=== PATIENT | female | born 1990 | race Caucasian/White ===

== ENCOUNTER 2017-02-27 11:28 | Emergency (ER) | payer OTHER ==
[2017-02-27 11:32] VITALS: BP 143/71; PULSE 64; TEMP 98; BMI 30.7
--- NOTE | 2017-02-27 11:45 | PDOC ---
History of Present Illness - General Chief Complaint: Pain, Acute Stated Complaint: RIGHT KNEE PAIN Time Seen by Provider: 02/27/17 11:34 - History of Present Illness Initial Comments: 02/27/17 11:40 Patient is a 26 year old female who presents with right knee pain. The patient reports having a mechanical fall while at work 2 days ago and sustained an abrasion just below her right knee. She has been using peroxide to clean the wound and has been keeping it covered with a bandaid. She was concerned that the wound was infected due to some redness around the wound. She denies any fevers, chills, or difficultly ranging the joint or walking. She has no other complaints. Past History - Past Medical History Allergies/Adverse Reactions: Allergies Allergy/AdvReac Type Severity Reaction Status Date / Time doxycycline Allergy Verified 02/27/17 11:29 levofloxacin [From Levaquin] Allergy Rash Verified 02/27/17 11:29 Penicillins Allergy Verified 02/27/17 11:29 Home Medications: Ambulatory Orders NK [No Known Home Medication] 02/27/17 Anemia: No Asthma: No Diabetes: No HTN: No - Surgical History Abdominal Surgery: No - Reproductive History Therapeutic (s) & number: No - Psycho/Social/Smoking Cessation Hx Anxiety: No Suicidal Ideation: No Smoking Status: No Smoking History: Never smoked Number of Cigarettes Smoked Daily: 0 Hx Alcohol Use: No Drug/Substance Use Hx: No Substance Use Type: None Review of Systems - Review of Systems Constitutional: No: Chills, Fever Respiratory: No: Cough, Shortness of Breath Cardiac (ROS): No: Chest Pain, Palpitations, Chest Tightness ABD/GI: No: Constipated, Diarrhea, Nausea, Vomiting : No: Burning, Dysuria Integumentary: No: Rash Neurological: No: Headache, Numbness, Tingling, Weakness *Physical Exam - Vital Signs Last Vital Signs Temp Pulse Resp BP Pulse Ox 98 F 64 16 143/71 100 02/27/17 11:28 02/27/17 11:28 02/27/17 11:28 02/27/17 11:28 02/27/17 11:28 - Physical Exam Comments: 02/27/17 11:54 General Appearance: Nourished. No Apparent Distress HEENT: No Pharyngeal Erythema, Tonsillar Exudate, Tonsillar Erythema Respiratory/Chest: Lungs Clear, Normal Breath Sounds. No Crackles, Rales, Rhonchi, Wheezing Cardiovascular: Regular Rhythm, Regular Rate. No Murmur, Gallop/S3, Gallop/S4 Gastrointestinal/Abdominal: Normal Bowel Sounds, Soft. No Guarding, Rebound, Tenderness Extremity: Normal Capillary Refill, 1-2 cm abrasion noted over the right tibia just below the right knee with good granulation tissue and surrounding bruising. Normal range of motion the right knee. Integumentary: Normal Color, Dry, Warm Neurologic: Fully Oriented, Alert, Normal Mood/Affect, Normal Response Medical Decision Making - Medical Decision Making 02/27/17 11:45 Patient is a 26 year old female who presents with concerns for infection of a right knee abrasion. Given the physical examination consisting of a lack of warmth, erythema of the abrasion with good granulation tissue and no pus drainage, the patient's abrasion does not appear infected. The patient is currently caring for the wound appropriately with cleaning of the wound with peroxide and covered with bandages. Given her exam, we are not concerned for fracture currently. The patient does not know when her last tetanus shot was so we will update here in the ED. We discussed the plan with the patient and feel comfortable discharging home. The patient is agreeable to the plan. *DC/Admit/Observation/Transfer Diagnosis at time of Disposition: Abrasion - Discharge Dispostion Disposition: HOME Condition at time of disposition: Good Admit: No - Patient Instructions Printed Discharge Instructions: DI for Abrasion Additional Instructions: Please return to the ER if you experience concerning or worsening symptoms including fevers or chills. Please follow up with your primary care provider to discuss your ER visit. - Attestations Physician Attestion: 02/27/17 11:53 I, Dr. Severino Monzon, attest that this document has been prepared under my direction and personally reviewed by me in its entirety. I further attest, that it accurately reflects all work, treatment, procedures and medical decision -making performed by me.
[2017-02-27] MEDS ORDERED: DIPHTH,PERTUSS(ACELL),TET 0.5 ML DISP.SYRIN IM ONE (11:49)
--- NOTE | 2017-02-27 12:03 | PDOC ---
Attending Attestation - Resident Resident Name: NaSeverino - ED Attending Attestation I have performed the following: I have examined & evaluated the patient, The case was reviewed & discussed with the resident, I agree w/resident's findings & plan, Exceptions are as noted - HPI HPI: 02/27/17 11:54 26 yo F with no pmhx here s/p trip and fall on right knee yestserday. c/o abrasion to right knee and mild right knee pain. no pain with range of motion, no leg swelling. no redness. no f/c was concerned abrasion was getting infected. has been applying bacitracin/ neosporin and hydrogen peroxide since fall. did not take anything for pain prior to arrival. last tetanus unknown. - Physicial Exam PE: 02/27/17 11:57 awake alert lung clear bilaterally. heart RRR no mrg. right leg with superficial abrasion to knee 2x 2.5 cm . knee FROM. no laxity. ankle and hip NT FROM. no surrounding erythema. no exudate. - Medical Decision Making 02/27/17 12:03 26 yo F s/p fall with superficial abrasion contusion. fROM. xray not necessary. plan tetanus. continued superifical wound care. pt declined pain medication. dc.
== END 2017-02-27 12:05 | disposition home or self-care (01) ==
LOC: FER 11:28
PROC: 3E0234Z Introduction of Serum, Toxoid and Vaccine into Muscle, Percutaneous Approach (ICD-10-PCS; principal; 2017-02-27)
DX: S80.211A Abrasion, right knee, initial encounter (principal); W18.39XA Other fall on same level, initial encounter; Y93.9 Activity, unspecified; Y92.9 Unspecified place or not applicable
CPT/HCPCS: 90715; 99281-25

== ENCOUNTER 2018-12-27 11:19 | Emergency (ER) | payer OTHER ==
--- NOTE | 2018-12-27 11:22 | PDOC ---
History of Present Illness - General Chief Complaint: Vomiting/Diarrhea Stated Complaint: ABD CRAMPING, DIARRHEA, VOMITING Time Seen by Provider: 12/27/18 11:21 - History of Present Illness Initial Comments: 28 year old female with PMH of acne (recently on doxycyline) and obesity ( taking semeglutide and phenteramine) presenting with nausea, vomiting, abdominal cramping, and diarrhea for the past 2.5 days. 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 Denies any unusual food ingestion or any poorly cooked food ingestion. States that these symptoms started on 12/25 afternoon with some mild abdominal cramping followed by nausea. On 12/26 the diarrhea worsened and she began to experience morning vomiting multiple times which would resolve in the afternoon. She was able to ingest pasta and water yesterday evenign after work but had diarrhea soon after the pasta ingestion. this morning she had some more episodes of vomiting but her diarrhea has improved. She is currently hungry but slightly afraid to eat as she fears she may vomit. Denies fevers, chills, nausea, vomiting, or other symptoms. 12/27/18 11:48 Past History - Past Medical History Allergies/Adverse Reactions: Allergies Allergy/AdvReac Type Severity Reaction Status Date / Time levofloxacin [From Levaquin] Allergy Rash Verified 12/27/18 11:21 Home Medications: Ambulatory Orders Phentermine HCl 5 mg PO DAILY 12/27/18 Semaglutide [Ozempic] 0.25 mg SQ WEEKLY 12/27/18 Anemia: No Asthma: No Diabetes: No HTN: No - Surgical History Abdominal Surgery: No - Reproductive History Therapeutic (s) & number: No - Suicide/Smoking/Psychosocial Hx Smoking Status: No Smoking History: Never smoked Number of Cigarettes Smoked Daily: 0 Hx Alcohol Use: No Drug/Substance Use Hx: No Substance Use Type: None Review of Systems - Review of Systems Constitutional: No: Chills, Diaphoresis, Fever HEENTM: No: Blurred Vision, Tearing Respiratory: No: Cough, Orthopnea, Shortness of Breath Cardiac (ROS): No: Chest Pain, Edema, Irregular Heart Rate ABD/GI: Yes: Diarrhea, Nausea, Poor Appetite, Poor Fluid Intake, Vomiting : No: Burning, Dysuria, Discharge Musculoskeletal: No: Back Pain, Joint Pain Integumentary: No: Bruising, Erythema, Flushing Neurological: No: Headache, Numbness, Paresthesia Psychiatric: No: Anxiety, Depression *Physical Exam - Physical Exam General Appearance: Yes: Nourished, Appropriately Dressed. No: Apparent Distress HEENT: positive: EOMI, YAMILE, Normal ENT Inspection, Normal Voice Neck: positive: Trachea midline, Normal Thyroid, Supple. negative: Tender, Rigid Respiratory/Chest: positive: Lungs Clear, Normal Breath Sounds. negative: Chest Tender, Respiratory Distress, Accessory Muscle Use Cardiovascular: positive: Regular Rhythm, Regular Rate Gastrointestinal/Abdominal: positive: Normal Bowel Sounds, Flat, Soft. negative : Tender Lymphatic: negative: Adenopathy, Tenderness Musculoskeletal: positive: Normal Inspection. negative: Decreased Range of Motion Extremity: positive: Normal Capillary Refill, Normal Inspection, Normal Range of Motion. negative: Tender Integumentary: positive: Normal Color, Dry, Warm Neurologic: positive: Fully Oriented, Alert, Normal Mood/Affect, Normal Response , Motor Strength 5/5 Medical Decision Making - Medical Decision Making 28 year old previously healthy female presenting with nausea, vomiting, diarrhea , and abdominal cramping. Given her sick contacts with identical symptoms and apparent symptom improvement prior to presentation this seems consistent with an infectious gastroenteritis. Her symptoms here drastically improved after 1 L NS and toleration of PO fluids and crackers. HCG and UA were negative. This is unlikely to be a concerning/ emergent intra-abdominal pathology given that she is non-tender on PE and remained so throughout her stay. Furthermore, she had no VS abnormalities. Patient agreed to strong return precautions and follow up with her PCP. 12/27/18 11:54 *DC/Admit/Observation/Transfer Diagnosis at time of Disposition: Nausea vomiting and diarrhea Abdominal pain Qualifiers: Abdominal location: generalized Qualified Code(s): R10.84 - Generalized abdominal pain - Discharge Dispostion Disposition: HOME Condition at time of disposition: Improved Decision to Admit order: No - Referrals Referrals: Danilo Chang MD [Primary Care Provider] - - Patient Instructions Printed Discharge Instructions: Nausea and Vomiting-Adult Additional Instructions: Please continue to eat soft room temperature foods and avoid spicy/ heavy foods for the next day. Please avoid alcohol, high sugar drinks, or other irritating foods. Continue to drink slightly cool or room temperature water as well. Your symptoms should improve in one day or so. If you do not improve in two days, get worse, have worsening, abdominal pain, worsening nausea, worsening vomiting , or other concerning symptoms. Follow up with your PCP within one week if you have any further questions or non-urgent concerns. - Post Discharge Activity
[2018-12-27 11:36] VITALS: BP 129/85; PULSE 86; TEMP 97.5; BMI 31.4
[2018-12-27 11:40] LABS: HCG,QUALITATIVE URINE Negative
[2018-12-27] MEDS ORDERED: SODIUM CHLORIDE 0.9% 500 ML INFUS.BAG IV ONE (11:47)
[2018-12-27 11:57] LABS: EPI CELLS 1+ /HPF; URINE BACTERIA 1+ /hpf (NEGATIVE); URINE RBC 0-3 /hpf (0-4); URINE WBC 0-3 (NEGATIVE)
[2018-12-27 11:59] LABS: PH,URINE 5.5 (4.5-8); URINE APPEARANCE CLEAR; URINE BILIRUBIN NEGATIVE (NEGATIVE); URINE COLOR YELLOW; URINE GLUCOSE (UA) NEGATIVE (NEGATIVE); URINE KETONE NEGATIVE (NEGATIVE); URINE PROTEIN TRACE (NEGATIVE); URINE UROBILINOGEN 0.2 (0.2-1.0)
[2018-12-27 12:00] LABS: URINE LEUK ESTERASE TRACE (NEGATIVE); URINE NITRITE NEGATIVE (NEGATIVE)
[2018-12-27 12:01] LABS: EPITHELIAL CELLS 1+ /hpf
--- NOTE | 2018-12-27 12:40 | PDOC ---
Attending Attestation - Resident Resident Name: Micheal Mitchell - ED Attending Attestation I have performed the following: I have examined & evaluated the patient, The case was reviewed & discussed with the resident, I agree w/resident's findings & plan, Exceptions are as noted - HPI HPI: 12/27/18 12:38 28 F with N+V+D. Pt states that her symptoms began 2 days ago with vomiting and diarrhea. Today, she states the vomiting has subsided but she still has some diarrhea. Endorses cramping abdominal pain associated with diarrhea. Denies F/ C. Denies bloody or dark stools or blood in her vomit. Endorses sick contacts at work with similar symptoms. Denies flank pain or dysuria. Denies vaginal bleeding/discharge. - Physicial Exam PE: 12/27/18 12:39 "GENERAL: Awake, alert, and fully oriented, in no acute distress. HEAD: No signs of trauma EYES: PERRLA, EOMI, sclera anicteric, conjunctiva clear ENT: Auricles normal inspection, hearing grossly normal, nares patent, oropharynx clear without exudates. Moist mucosa NECK: Nontender, no stepoffs, Normal ROM, supple, no lymphadenopathy, JVD, or masses LUNGS: Breath sounds equal, clear to auscultation bilaterally. No wheezes, and no crackles HEART: Regular rate and rhythm, normal S1 and S2, no murmurs, rubs or gallops ABDOMEN: Soft, nontender, normoactive bowel sounds. No guarding, no rebound. No masses EXTREMITIES: Normal range of motion, no edema. No clubbing or cyanosis. No cords, erythema, or tenderness NEUROLOGICAL: Cranial nerves II through XII intact. 5/5 strength and sensation in all extremities, Normal speech, normal gait, normal cerebellar function SKIN: Warm, Dry, normal turgor, no rashes or lesions noted. - Medical Decision Making 12/27/18 12:40 28 F with N+V+D x 2 days. Completely benign abdominal exam in ED. Suspect viral gastroenteritis. - IVF - PO challenge 12/27/18 13:41 pt tolerating PO Pt is well appearing, with normal vitals. Clinically stable for DC at this time. I discussed the physical exam findings, ancillary test results and final diagnoses with the patient. I answered all of the patient's questions. The patient was satisfied with the care received and felt comfortable with the discharge plan and treatment plan. The patient agrees to follow up with the primary care physician within 24-72 hours.
== END 2018-12-27 13:40 | disposition home or self-care (01) ==
LOC: FER 11:19
PROC: 3E0337Z Introduction of Electrolytic and Water Balance Substance into Peripheral Vein, Percutaneous Approach (ICD-10-PCS; principal; 2018-12-27)
DX: R11.2 Nausea with vomiting, unspecified (principal); R10.84 Generalized abdominal pain; E66.9 Obesity, unspecified; Z68.31 Body mass index [BMI] 31.0-31.9, adult
CPT/HCPCS: 81003; 81015; 84703; 99283-25

== ENCOUNTER 2019-07-18 21:01 | Emergency (ER) | payer OTHER ==
[2019-07-18] MEDS ORDERED: NAPROXEN 500 MG TABLET (FP) PO ONE (21:18)
[2019-07-18] MEDS ORDERED: AMOX TR/POT CLAV 875MG/125MG TABLETS (FP) PO ONE (21:18)
[2019-07-18] MEDS ORDERED: AMOX TR/POT CLAV 875MG/125MG TABLETS (FP) ONE (21:22)
[2019-07-18] MEDS ORDERED: NAPROXEN 500 MG TABLET (FP) ONE (21:22)
--- NOTE | 2019-07-18 21:25 | PDOC ---
Documentation entered by Pepe Mcpherson SCRIBE, acting as scribe for Bhanu Mclaughlin MD. Bhanu Mclaughlin MD: This documentation has been prepared by the [employer] Aiswarya, SCRIBE, under my direction and personally reviewed by me in its entirety. I confirm that the documentation accurately reflects all work, treatment, procedures, and medical decision making performed by me. History of Present Illness - General Chief Complaint: Ear Problem Stated Complaint: EAR PAIN Time Seen by Provider: 07/18/19 21:13 History Source: Patient Exam Limitations: No Limitations - History of Present Illness Initial Comments: 07/18/19 21:24 Assessment plan: This is a 28-year-old female who has history of ear infections in the past. Patient went swimming on Sunday and developed a right otitis externa. Patient went to an urgent care center and was started on some eardrops which up appear to be helping however patient now has increased pain so came in for evaluation. Patient has a otitis media in addition to a improving otitis externa. Patient started on Augmentin first dose given in ED and patient discharged home. 07/18/19 21:32 The patient is a 28 year old female with no significant past medical history, who presents to the emergency room with 5 days of ear pain extends to the jaw. The patient states the throbbing and sharp pain is located to the right external ear with a 10/10 severity. The patient states she is currently on neomycin and feels like it worsened the pain. She also mentions she went swimming on 07/14/2019. PAST MEDICAL HISTORY: no significant history PAST SURGICAL HISTORY: no significant history FAMILY HISTORY: no pertinent history SOCIAL HISTORY: Pt lives with family and is employed. MEDICATIONS: reviewed ALLERGIES: As per nursing notes Adult ROS General: No fevers or chills, no weakness, no weight loss HEENT:+ear pain No change in vision. No sore throat. CardioVascular: No chest pain or shortness of breath Neurologic: No headache, vertigo, dizziness or loss of consciousness Psychiatric: nor depression Skin:+external ear redness. Endocrine: no increased thirst or abnormal weight change Allergic: no skin or latex allergy All other systems reviewed and normal Basic PE GENERAL: The patient is awake, alert, and fully oriented, in no acute distress. HEAD: Normal with no signs of trauma. EYES: Pupils equal, round and reactive to light, extraocular movements intact, sclera anicteric, conjunctiva clear. EAR: +Pain on manipulation of the right ear lobe and external canal edema with mild erythema. No discharge. Tympanic membrane moderately red. EXTREMITIES: Normal range of motion, no edema. NEUROLOGICAL: Normal speech, normal gait. PSYCH: Normal mood, normal affect. SKIN: Warm, Dry, normal turgor, no rashes or lesions noted. Past History - Past Medical History Allergies/Adverse Reactions: Allergies Allergy/AdvReac Type Severity Reaction Status Date / Time levofloxacin [From Levaquin] Allergy Rash Verified 07/18/19 21:10 Home Medications: Ambulatory Orders Amoxicillin/Potassium Clav [Augmentin 875-125 Tablet] 1 each PO BID #20 tablet 07/18/19 Cholecalciferol (Vitamin D3) [Optimal D3] 50,000 unit PO WEEKLY 07/18/19 Neomycin/Polymyxn/Hc [Cortisporin Otic Suspenstion -] 1 drop AD QID 07/18/19 Anemia: No Asthma: No COPD: No Diabetes: No HTN: No - Surgical History Abdominal Surgery: No - Reproductive History Therapeutic (s) & number: No - Psycho Social/Smoking Cessation Hx Smoking Status: No Smoking History: Never smoked Have you smoked in the past 12 months: No Number of Cigarettes Smoked Daily: 0 Hx Alcohol Use: Yes (SOCIAL) Drug/Substance Use Hx: No Substance Use Type: None *Physical Exam - Vital Signs Last Vital Signs Temp Pulse Resp BP Pulse Ox 98.3 F 80 16 150/90 95 07/18/19 21:08 07/18/19 21:08 07/18/19 21:08 07/18/19 21:08 07/18/19 21:08 Discharge - Discharge Information Problems reviewed: Yes Clinical Impression/Diagnosis: Right otitis media Right otitis externa Qualifiers: Otitis externa type: swimmer's ear Chronicity: acute Qualified Code(s): H60.331 - Swimmer's ear, right ear Condition: Good Disposition: HOME - Admission No - Additional Discharge Information Prescriptions: Amoxicillin/Potassium Clav [Augmentin 875-125 Tablet] 1 each PO BID #20 tablet - Follow up/Referral Referrals: Danilo Chang MD [Primary Care Provider] - - Patient Discharge Instructions Additional Instructions: For the tape pain take naproxen 2 tablets twice a day with food do not take on an empty stomach. Continue to use your drops that you were given by the urgent care center. In addition to that take Augmentin 1 tablet twice a day for 10 days. Return to the emergency department immediately with ANY new, persistent or worsening symptoms. Continue any medications as previously prescribed by your physician. You should follow up with your primary doctor as soon as possible regarding today's emergency department visit. . Please make sure your doctor reviews the results of your emergency evaluation. Thank you for coming to the Emergency Department today for your care. It was a pleasure to see you today. Please note that your evaluation is INCOMPLETE until you follow-up with your doctor. - Post Discharge Activity
[2019-07-18 21:30] VITALS: BP 150/90; PULSE 80; TEMP 98.3; BMI 30.7
== END 2019-07-18 21:32 | disposition home or self-care (01) ==
LOC: FER 21:01
DX: H92.01 Otalgia, right ear (principal); H60.331 Swimmer's ear, right ear; Z88.8 Allergy status to other drugs, medicaments and biological substances
CPT/HCPCS: 99281-25

== ENCOUNTER 2023-01-07 21:41 | Emergency (ER) | payer OTHER ==
[2023-01-07 21:45] VITALS: BP 144/65; PULSE 60; RESP 18; TEMP 98; BMI 34.8
== END 2023-01-08 01:31 | disposition left against medical advice (07) ==
LOC: JERFT 21:41 → JER 21:41
DX: M25.472 Effusion, left ankle (principal); M79.89 Other specified soft tissue disorders
CPT/HCPCS: 93970-TC; 99284-25

== ENCOUNTER 2023-08-19 02:32 | Emergency (ER) | payer OTHER ==
[2023-08-19 02:48] VITALS: BP 136/80; PULSE 73; RESP 18; TEMP 97.7; BMI 34.8
== END 2023-08-19 04:25 | disposition home or self-care (01) ==
LOC: JER 02:32
DX: H71.02 Cholesteatoma of attic, left ear (principal); H74.02 Tympanosclerosis, left ear; M77.9 Enthesopathy, unspecified; M26.602 Left temporomandibular joint disorder, unspecified; H92.02 Otalgia, left ear
CPT/HCPCS: 99283-25

== ENCOUNTER 2024-06-06 13:21 | Emergency (ER) | payer OTHER ==
[2024-06-06] MEDS ORDERED: ACETAMINOPHEN 325 MG TABLET (FP) PO ONE (13:25)
[2024-06-06 14:02] VITALS: BP 128/106; PULSE 86; RESP 20; TEMP 98.2; BMI 33.7
[2024-06-06] MEDS ORDERED: KETOROLAC TROMETHAMINE 30 MG/1 ML VIAL ONE (14:20)
[2024-06-06] MEDS: KETOROLAC TROMETHAMINE 15 MG/ML VIAL IM ONE (14:42)
== END 2024-06-06 15:44 | disposition home or self-care (01) ==
LOC: FER 13:21
PROC: 3E0133Z Introduction of Anti-inflammatory into Subcutaneous Tissue, Percutaneous Approach (ICD-10-PCS; principal; 2024-06-06)
DX: M79.675 Pain in left toe(s) (principal)
CPT/HCPCS: 73610-TC-LT-FY; 73630-TC-LT; 99284-25